=== PATIENT | female | born 1975 | race Caucasian/White ===

== ENCOUNTER 2017-02-02 13:30 | Emergency (ER) | payer OTHER ==
[2017-02-02 16:20] LABS: BASOPHIL 0.1 % (0-2); EOSINOPHIL 0.1 % (0-5); HCT 43.3 % (37.0-47.0); HGB 15.2 g/dl (12.5-16.0); MCH 30.9 pg (25.0-31.0); MCHC 35.1 g/dL (32.0-36.0); MONOCYTE 5.5 % (0-12); MPV 9.6 fL (6.0-9.5); NEUTROPHIL 87.3 % (41-80); PLT 236 K/uL (150-400); RBC 4.92 M/uL (4.20-5.40); WBC 13.6 K/uL (4.0-10.5)
[2017-02-02 16:31] LABS: ALBUMIN 4.4 g/dL (3.5-5.0); BILIRUBIN - TOTAL 1.5 mg/dL (0.1-1.0); CREATININE 0.8 mg/dL (0.5-1.0); GLOBULIN (CALCULATION) 3.1 g/dL (2.2-4.2); POTASSIUM 3.6 mmol/L (3.5-5.1); TOTAL PROTEIN 7.5 g/dL (6.4-8.3)
== END 2017-02-02 17:30 | disposition home or self-care (01) ==
LOC: FER 13:30
PROVIDERS: Emergency Medicine
DX: K62.5 Hemorrhage of anus and rectum (principal); R19.7 Diarrhea, unspecified; Z87.19 Personal history of other diseases of the digestive system
CPT/HCPCS: 36415; 80053; 85025

== ENCOUNTER → 2020-09-04 | Day surgery (SDC) | payer OTHER ==
[~2020-09-04] MED LIST: COLACE100 MG PO; IBUPROFEN800 M1 PO; PERCOCET 5-3251 EACH PO; ZOFRAN4 M1 PO
[2020-09-04 07:40] LABS: HCG (URINE) SCREEN NEGATIVE (NEGATIVE)
== END | disposition home or self-care (01) ==
LOC: FAS 07:07
PROVIDERS: Obstetrics & Gynecology
DX: N93.9 Abnormal uterine and vaginal bleeding, unspecified (principal); N81.4 Uterovaginal prolapse, unspecified; N83.201 Unspecified ovarian cyst, right side; N94.0 Mittelschmerz; I10 Essential (primary) hypertension; E66.3 Overweight; Z68.26 Body mass index [BMI] 26.0-26.9, adult; Z98.51 Tubal ligation status; Z98.890 Other specified postprocedural states
CPT/HCPCS: 84703; J1100; J1885; J2250; J2405; J2704; J3010

== ENCOUNTER 2020-12-17 07:17 | Day surgery (SDCO) | payer OTHER ==
[~2020-12-17] VITALS: Ht 165.1 cm; Wt 72.6 kg
[~2020-12-17 07:17] MED LIST changes: -COLACE100 MG PO; -PERCOCET 5-3251 EACH PO; -ZOFRAN4 M1 PO
[2020-12-17 07:34] LABS: HCG (URINE) SCREEN NEGATIVE (NEGATIVE)
[2020-12-17 08:19] LABS: HCT 38.9 % (37.0-47.0); HGB 13.4 g/dl (12.5-16.0); MCH 31.3 pg (25.0-31.0); MCHC 34.4 g/dL (32.0-36.0); MCV 90.9 fL (78.0-100.0); MPV 9.8 fL (6.0-9.5); RBC 4.28 M/uL (4.20-5.40); RDW 12.4 % (11.5-14.0)
[2020-12-17] MEDS ORDERED: PERCOCET 5-3251 EACH PO (10:45)
[2020-12-17] MEDS ORDERED: ZOFRAN4 M1 PO (10:45)
[2020-12-17] MEDS ORDERED: IBUPROFEN800 M1 PO (10:45)
[2020-12-17] MEDS ORDERED: COLACE100 MG PO (10:45)
== END 2020-12-17 15:02 | disposition home or self-care (01) ==
LOC: FSDC 07:17 → FMS 08:30 → FSDC 15:02
PROVIDERS: ADMIT Obstetrics & Gynecology
DX: D25.9 Leiomyoma of uterus, unspecified (principal); N80.0 Endometriosis of uterus; N81.4 Uterovaginal prolapse, unspecified; N83.8 Other noninflammatory disorders of ovary, fallopian tube and broad ligament; N70.11 Chronic salpingitis; Z20.822 Contact with and (suspected) exposure to COVID-19; Z98.890 Other specified postprocedural states; Z80.7 Family history of other malignant neoplasms of lymphoid, hematopoietic and related tissues; Z82.49 Family history of ischemic heart disease and other diseases of the circulatory system; Z86.19 Personal history of other infectious and parasitic diseases; Z98.51 Tubal ligation status
CPT/HCPCS: 36415; 84703; 86850; 86900; 86901; G0378; J0690; J1100; J1170; J1885; J2250; J2405; J2704; J2710; J3010; J7120